=== PATIENT | male | born 1990 | race Caucasian/White ===

== ENCOUNTER 2020-06-18 09:00 | Outpatient (RCR) | payer BC, SELFPAY ==
[2020-05-13 10:53] VITALS: BMI 37.7
[2020-05-13 10:54] VITALS: BMI 37.7
== END 2020-06-18 18:12 | disposition home or self-care (01) ==
LOC: ANHDMC 09:00
PROVIDERS: PCP Family Medicine; Visit Provider Family Medicine
DX: E11.65 Type 2 diabetes mellitus with hyperglycemia (principal); Z71.3 Dietary counseling and surveillance; Z71.89 Other specified counseling
CPT/HCPCS: 97802; G0108

== ENCOUNTER 2020-11-25 09:15 | Outpatient (RCR) | payer OTHER, SELFPAY | END 2021-01-06 08:38 | disposition home or self-care (01) | LOC: ANHDMC 09:15 | PROVIDERS: PCP Family Medicine; Visit Provider Family Medicine | DX: E11.65 Type 2 diabetes mellitus with hyperglycemia (principal); Z71.89 Other specified counseling | CPT/HCPCS: G0108 ==

== ENCOUNTER 2023-12-06 16:12 | Observation (INO) | payer BC, SELFPAY ==
[2023-12-06] VITALS (10 sets, daily range): BP systolic 111–121; BP diastolic 73–77; PULSE 77–104; RESP 15–22; TEMP 37.4–37.7; O2SAT 95–100
--- NOTE | ~2023-12-06 | CT_ITS ---
EXAMINATION: CT brain wo con DATE: 12/06/2023 19:43 INDICATION: headache . TECHNIQUE: Computed tomography (CT) of the head was performed without intravenous contrast. The mA wa s adjusted according to patient size. Iterative reconstruction technique was employed. The dose-lengt h product was 681.00 mGy-cm. COMPARISON: None. FINDINGS: No acute intracranial hemorrhage or extra-axial fluid collection. No hydrocephalus, mass, or herniation. No acute ischemic infarct. Unremarkable dural venous sinus attenuation. No acute osseous abnormality. Mild sphenoid and ethmoid mucosal thickening, the remaining aerated spaces are clear. IMPRESSION: No acute intracranial process. Reviewed, dictated and finalized at location K.
--- NOTE | ~2023-12-06 | XR_ITS ---
EXAMINATION: XR chest 2V Exam Date/Time: 12/06/2023 18:45 CDT HISTORY: sob, FEVER AND WEAKNESS, BODYACHES X 3 DAYS Comparison: 05/19/2016, report only. RESULT: Lines, tubes, and devices: None. Lungs and pleura: Clear. Cardiomediastinal silhouette: Stable. Other: No acute osseous or upper abdominal finding. IMPRESSION: No acute cardiopulmonary process. Reviewed, dictated and finalized at location K.
--- NOTE | 2023-12-06 18:29 | ECG_ITS ---
SEE SCANNED COPY FOR CONFIRMED REPORT MTDD
[2023-12-06] MEDS: IPRATROPIUM 0.5 MG/ALBUTEROL SULFATE 2.5 MG AMPUL.NEB 3 ML INHALATION (18:39)
--- NOTE | 2023-12-06 18:39 | ED.HA ---
HPI - Headache General Chief Complaint: Headache <Odilia Pérez PA-C - Last Filed: 12/07/23 02:05> Stated Complaint: Migraine,n & v <Odilia Pérez PA-C - Last Filed: 12/07/23 02:05> Time Seen by Provider: 12/06/23 17:57 <Odilia Pérez PA-C - Last Filed: 12/07/23 02:05> Source: patient <RANDA Bernard Last Filed: 12/07/23 02:05> Mode of arrival: ambulatory <RANDA Bernard Last Filed: 12/07/23 02:05> Limitations: no limitations <Odilia Pérez PA-C - Last Filed: 12/07/23 02:05> History of Present Illness HPI Narrative: This is a 33-year-old male that presents to the emergency department for a migraine headache. Reports history of migraines. He is also currently ill with flu-like symptoms. Reports since Tuesday he has been having fevers, headache, myalgias, nausea and vomiting. He saw his PCP yesterday for this with negative influenza testing. Presents tonight for treatment of his headache. Reports throbbing in nature with associated photophobia and nausea. Denies focal numbness or weakness. <Odilia Pérez PA-C - Last Filed: 12/07/23 02:05> Related Data Home Medications: Home Medications Medication Instructions Recorded Confirmed bupropion HCl 300 mg 24 hr tablet, 300 mg PO QHS 12/07/23 12/07/23 extended release cholecalciferol (vitamin D3) 1,250 2,000 mcg PO QAM 12/07/23 12/07/23 mcg (50,000 unit) tablet dapagliflozin propaned 5 2 tablet PO HS 12/07/23 12/07/23 mg-metformin ER 1,000 mg tablet, ext rel 24hr (Xigduo XR) omeprazole 20 mg capsule,delayed 20 mg PO HS 12/07/23 12/07/23 release paroxetine HCl 40 mg tablet (Paxil) 40 mg PO QHS 12/07/23 12/07/23 rosuvastatin 40 mg tablet 40 mg PO QHS 12/07/23 12/07/23 <Odilia Pérez PA-C - Last Filed: 12/07/23 02:05> Allergies/Adverse Reactions: Allergies Allergy/AdvReac Type Severity Reaction Status Date / Time No Known Allergies Allergy Mild Verified 12/06/23 16:13 <Odilia Pérez PA-C - Last Filed: 12/07/23 02:05> Review of Systems Review of Systems: CONSTITUTIONAL: Reports fever ENT: Denies rhinorrhea, congestion, sore throat RESPIRATORY: Reports dyspnea. Denies cough GASTROINTESTINAL: Reports nausea, vomiting MUSCULOSKELETAL: Reports myalgia. NEUROLOGIC: Reports headache. Denies numbness, or weakness. <Odilia Pérez PA-C - Last Filed: 12/07/23 02:05> All systems reviewed & are unremarkable except as noted in HPI and below <Odilia Pérez PA-C - Last Filed: 12/07/23 02:05> [facility] Past Medical History Medical History: Medical History Anxiety and depression BMI 32.0-32.9,adult BMI 33.0-33.9,adult BMI 34.0-34.9,adult BMI 35.0-35.9,adult BMI 36.0-36.9,adult BMI 37.0-37.9, adult Current mild episode of major depressive disorder without prior episode Elevated cholesterol Encounter for general adult medical examination without abnormal findings Gastroesophageal reflux disease without esophagitis Grade I hemorrhoids Heartburn Low testosterone Low vitamin D level Migraine, unspecified, not intractable, without status migrainosus Tobacco use Unspecified sleep apnea <Odilia Pérez PA-C - Last Filed: 12/07/23 02:05> Family History Family History: Family History Father No problems noted. Mother No problems noted. Sibling No problems noted. Other Diabetes mellitus <Odilia Pérez PA-C - Last Filed: 12/07/23 02:05> Social History Social History: Social History Smoking packs per day: 0.5 Smoking cigarettes per day: 10.0 Years smoked: 19 Smoking pack-years: 9.50 Smoking status: Current every day smoker Tobacco type: cigarettes Second hand tobacco smoke exposure: No Alcohol intake: never Drinks per week: 1 Substance use:
[2023-12-06 18:45] LABS: Strep Group A RT-PCR NOT DETECTED (Negative)
[2023-12-06 18:59] LABS: Influenza A QL RT-PCR Negative (Negative); Influenza B QL RT-PCR Negative (Negative); RSV RNA, RT-PCR Negative (Negative); SARS-CoV-2 RNA PCR Negative (Negative)
[2023-12-06 19:06] LABS: Basophils Percent Auto 0.3 % (0.2-1.2); Eosinophils Absolute Auto 0.1 K/mm3 (0-0.3); Eosinophils Percent Auto 1.2 % (0-4.4); Hematocrit 48.8 % (42.0-52.0); Hemoglobin 16.2 g/dL (14.0-18.0); Immature Granulocyte Absolute 0.03 K/mm3 (0.00-0.031); Immature Granulocyte Percent A 0.5 % (0-0.5); Lymphocytes Absolute Auto 0.68 K/mm3 (0.9-3.2); Lymphocytes Percent Auto 11.2 % (18.3-44.2); Mean Corpuscular HGB Conc 33.2 g/dl (32-36); Mean Corpuscular Hemoglobin 27.4 pg (26-34); Mean Corpuscular Volume 82.4 fl (80-100); Mean Platelet Volume 9.5 fl (7.4-10.4); Monocytes Absolute Auto 0.6 K/mm3 (0.1-0.6); Monocytes Percent Auto 9.8 % (2.6-8.5); Neutrophils Absolute Auto 4.7 K/mm3 (1.3-6.7); Platelet Count Result 140 k/mm3 (150-375); Red Blood Count 5.92 M/mm3 (4.6-6.20); Red Cell Distribution Width 13.6 % (11.5-14.5); White Blood Count 6.1 K/mm3 (4.5-10.0)
[2023-12-06] MEDS: diphenhydrAMINE HCl INJ 50 MG/ML VIAL 25 MG IV PUSH (19:11)
[2023-12-06] MEDS: SODIUM CHLORIDE 0.9% IV 1,000 ML 999 ML IV CONT (19:11)
[2023-12-06] MEDS: METOCLOPRAMIDE HCL INJ 10 MG/2 ML VIAL IV PUSH (19:11)
[2023-12-06] MEDS: ACETAMINOPHEN 500 MG TABLET 1000 MG PO (19:12)
[2023-12-06] MEDS: KETOROLAC 15 MG/ML VIAL (*BKC) IV PUSH (19:12)
[2023-12-06 19:22] LABS: Alanine Aminotransferase 63 U/L (6-50); Albumin Level 4.7 g/dL (3.5-5.1); Alkaline Phosphatase 81 U/L (38-126); Anion Gap 8 mmol/L (4-12); Aspartate Amino Transferase 49 U/L (17-59); Blood Urea Nitrogen 18 mg/dL (9-20); Calcium 9.9 mg/dL (8.4-10.2); Carbon Dioxide 27 mmol/L (22-30); Chloride 102 mmol/L (98-107); Estimated CRCL calculation 139 ml/min; Estimated Glomerular Filt Rate > 60; Glucose 115 mg/dL (65-110); Potassium 3.7 mmol/L (3.4-5.0); Sodium 137 mmol/L (137-145)
[2023-12-06 21:45] LABS: Erythrocyte Sedimentation Rate 12 mm/hr (0-20)
[2023-12-06 22:01] LABS: CRP 7.9 mg/dL (<1.0)
[2023-12-06] MEDS: cefTRIAXone 2 GM/NS 100 ML 2 GM/100 ML BAG IVPB (22:02)
[2023-12-06 22:09] LABS: Lactic Acid Reflex 0.9 mmol/L (0.7-2.0)
[2023-12-06] MEDS: dexAMETHasone SOD PHOS INJ 10 MG/ML 1 ML VIAL 16.5 MG IV PUSH (22:16)
--- NOTE | 2023-12-06 22:22 | PM.IMHP ---
H&P: HPI History of Present Illness Date/Time: 12/06/23 22:22 Chief Complaint: headache Narrative: This is a 33-year-old male with past medical history significant for anxiety and depression, obesity, gastroesophageal reflux disease, migraine headaches, tobacco use, sleep apnea. Patient presents to the emergency room with 3 days of headache localized to the left side, denies any congestion of the nose chest congestion had a fever of 104, denies sore throat denies diarrhea no sick contacts Had nausea with it no vomiting, no vision changes, took Tylenol and Advil with no relieve. Preliminary workup has been essentially nonrevealing in emergency room. Patient has been placed in observation for further evaluation management and treatment. Patient tested negative for influenza type A influenza type B RSV and COVID EXAMINATION:? XR chest 2V Exam Date/Time:? 12/06/2023 18:45 CDT HISTORY: sob, FEVER AND WEAKNESS, BODYACHES X 3 DAYS ? Comparison:? 05/19/2016, report only. RESULT: Lines, tubes, and devices:? None. Lungs and pleura:? Clear. Cardiomediastinal silhouette:? Stable. Other:? No acute osseous or upper abdominal finding. ? IMPRESSION: No acute cardiopulmonary process. EXAMINATION: CT brain wo con DATE: 12/06/2023 19:43 INDICATION: headache . TECHNIQUE: Computed tomography (CT) of the head was performed without intravenous contrast. The mA was adjusted according to patient size. Iterative reconstruction technique was employed. The dose-length product was 681.00 mGy-cm. COMPARISON: None. FINDINGS: No acute intracranial hemorrhage or extra-axial fluid collection. No hydrocephalus, mass, or herniation. No acute ischemic infarct. Unremarkable dural venous sinus attenuation. No acute osseous abnormality. Mild sphenoid and ethmoid mucosal thickening, the remaining aerated spaces are clear. IMPRESSION:? No acute intracranial process. Review of Systems Review of Systems: headache Constitutional: Constitutional: Reports chills, Denies night sweats and Reports poor appetite Eyes: Eyes: Denies change in vision Comments: ENT: Denies dysphagia, Denies vertigo, Denies dizziness, Reports headache(s), Denies nasal congestion, Denies nasal discharge, Denies nasal obstruction and Denies odynophagia Cardiovascular: Cardiovascular: Denies chest pain, Denies radiating jaw, neck or arm pain and Denies palpitations Respiratory: Respiratory: Denies chest congestion, Denies cough and Denies excessive phlegm production Gastrointestinal: Gastrointestinal: Denies abdominal pain, Denies diarrhea, Denies loose stools, Reports nausea and Denies vomiting Genitourinary: Genitourinary: Denies dysuria Musculoskeletal: Musculoskeletal: Denies myalgias Integumentary/Breasts: Skin/Breast: Denies rash Neurologic: Denies abnormal gait, Denies confusion, Denies vertigo, Denies dizziness, Denies lack of coordination, Denies focal weakness and Denies Sensory deficit (Neuro) Psychiatric: Psychiatric: Reports no additional psychiatric complaints and Reports as per HPI Endocrine: Endocrine: Denies cold intolerance, Denies fatigue, Denies flushing, Denies heat intolerance, Denies polyphagia, Denies polydipsia, Denies polyuria and Denies palpitations Hematologic/Lymphatic: Hematologic/Lymphatic: Reports no additional hematologic/lymphatic complaints and Reports as per HPI Allergic/Immunologic: Allergic/Immunologic: Reports no additional allergic/immunologic complaints and Reports as per HPI [facility] Past Medical History Medical History Anxiety and depression BMI 32.0-32.9,adult BMI 33.0-33.9,adult BMI 34.0-34.9,adult BMI 35.0-35.9,adult BMI 36.0-36.9,adult BMI 37.0-37.9, adult Current mild episode of major depressive disorder without prior episode Elevated cholesterol Encounter for general adult medical examination without abnormal findings [place]
[2023-12-06 22:24] LABS: Appearance Urine Clear (Clear); Bacteria Urine None Seen /hpf; Bilirubin Urine 1+ (Negative); Blood Urine Negative (Negative); Color Urine Dark Yellow (Yellow); Glucose Urine UA 3+ mg/dL (Negative); Ketones Urine 2+ mg/dL (Negative); Leukocyte Esterase Ur Negative LEU/UL (Negative); Need Manual Microscopic Reviewed; Nitrate Urine Negative (Negative); Non Pathogenic Casts 0-2; Protein Urine 1+ mg/dL (Negative); Squamous Epithelial Cell Urine None Seen /hpf (Few); WBC Urine 0-5 /hpf (0-3)
[2023-12-06 22:27] LABS: Add Urine Microscopic? YES; Specific Grav Ur 1.048 (1.001-1.035)
[2023-12-06 22:37] LABS: INR 0.9
[2023-12-07] VITALS: BP 117/71; PULSE 84; RESP 18; TEMP 36.4; O2SAT 96
--- NOTE | 2023-12-07 00:17 | ADMGEN ---
This patient, Rupesh Perez, was admitted to [address] [place] [address] Room 300-01. Patient/family oriented to hospital policies and general routines including ID bracelet, bed and alarms, visiting hours, pain management, procedures, bathroom and other care routines, personal items, smoking policy, room service/diet, and visiting hours. Information on how to activate the Rapid Response Team has been discussed. Patient/Family are encouraged to report perceived risks to care and to ask questions if they do not understand what they are told or what they should do.
[2023-12-07 00:33] VITALS: BMI 34.6
[2023-12-07] MEDS: ACETAMINOPHEN 500 MG TABLET 1000 MG PO (01:05)
[2023-12-07] MEDS: diphenhydrAMINE HCl INJ 50 MG/ML VIAL IV PUSH (01:05)
[2023-12-07] MEDS: VANCOMYCIN 1,250 MG/NS 250 ML 1,250 MG/250 ML BAG 166.67 MG IVPB ×2 (01:07→01:10)
[2023-12-07 05:15] VITALS: PULSE 80; O2SAT 97
[2023-12-07] MEDS: SODIUM CHLOR 3% 15 ML NEB (RESPIRATORY THERAPY) 6 ML INHALATION (05:37)
[2023-12-07 05:50] VITALS: PULSE 83; RESP 18
[2023-12-07 06:00] VITALS: BP 109/62; PULSE 79; RESP 18; TEMP 36.2; O2SAT 97
[2023-12-07 07:06] LABS: Estimated CRCL calculation 139 ml/min; Estimated Glomerular Filt Rate > 60
[2023-12-07 08:22] LABS: Glucose Point of Care 156 mg/dl (65-105)
--- NOTE | 2023-12-07 09:21 | PHAR ---
Home medication identified in pharmacy and returned to 3medsurg unit.Amphetamine -Dextroamphetamine ER 10MG
--- NOTE | 2023-12-07 12:13 | PM.DS ---
DS: Admitting Diagnosis Discharge Date 12/07/23 Admitting Diagnosis Headache DS: Discharge Diagnosis Discharge Diagnosis (1) Headache: Qualifiers: Headache chronicity pattern: acute headache Headache type: unspecified Intractability: intractable Qualified Code(s): R51.9 - Headache, unspecified Code(s): R51.9 - Headache, unspecified Status: Acute (2) Hyperlipidemia associated with type 2 diabetes mellitus: Code(s): E11.69 - Type 2 diabetes mellitus with other specified complication; E78.5 - Hyperlipidemia, unspecified Status: Acute (3) MAHSA (obstructive sleep apnea): Code(s): G47.33 - Obstructive sleep apnea (adult) (pediatric) Status: Acute (4) Tobacco use: Code(s): Z72.0 - Tobacco use Status: Acute (5) Type 2 diabetes mellitus with hyperglycemia, without long-term current use of insulin: Code(s): E11.65 - Type 2 diabetes mellitus with hyperglycemia Status: Acute (6) ADHD (attention deficit hyperactivity disorder): Qualifiers: Attention deficit-hyperactivity disorder type: combined inattentive-hyperactive Qualified Code(s): F90.2 - Attention-deficit hyperactivity disorder, combined type Code(s): F90.9 - Attention-deficit hyperactivity disorder, unspecified type Status: Acute DS: Summary Hospital Course Hospital Course: This is a 33-year-old male patient who was admitted for an intractable headache history of migraines tobacco use and sleep apnea. Patient reports that he had cold flu-like symptoms for several days and had a severe headache that had worsened gradually over a couple of days. At home he had a fever of 104?. In the emergency department he received IV fluids and medication for headache which helped a little bit but did not relieve the headache. He was started on antibiotics and steroids for possible meningitis admitted to the hospital with LP and MRI ordered. Overnight patient stated that he slept well is feeling much better today his headache is resolved he has no neck stiffness no fever no chills his cough has improved and he is not wanting to undergo further testing at this time. Discussed that he tested negative for flu RSV and COVID but other viral illnesses are possible. Discussed the risks and benefits of foregoing lumbar puncture and MRI. The fact that headache has completely resolved and patient never experienced neck stiffness or significant back pain with mobilization of chin to chest the likelihood of bacterial meningitis is essentially 0%. Discussed that he may have had a mild viral meningitis but supportive care would be the recommendation for such and now that he is symptom free patient elected for discharge. Computers were down at the time of discharge so he was provided a down time paper discharge form. He was also instructed to call his primary care office for follow-up appointment in 1-2 weeks while he was waiting for his discharge papers. I discussed reasons to return including high fever stiff neck return of pain vomiting or any worsening in symptoms. Patient expressed understanding. He was also counseled significantly greater than 10 minutes on smoking cessation, as well as blood sugar control, importance of hydration. Time spent discussing smoking cessation with patient: more than 10 minutes Status at Discharge Cognitive/behavioral status at discharge: Awake alert oriented and very pleasant Functional status at discharge: independent ambulation Overall status at discharge: patient is back to baseline Time Spent with Patient Time attestation: Total time spent providing and/or coordinating discharge services: 40 minutes in addition to more than 10 minutes of smoking cessation Time spent: Greater than 30 minutes Exam Narrative: GENERAL: Well-appearing, well-nourished, and in no acute distress. HEAD: Normocephalic, atraumatic. ENT:? Mucous membranes moist. No lymphadenopathy, no nuchal rigi
== END 2023-12-07 11:45 | disposition home or self-care (01) ==
LOC: ANHED 19:23 → ANH3MEDSUR 23:11
PROVIDERS: Admitting Provider Internal Medicine; Emergency Provider Physician Assistant; PCP Family Medicine; Visit Provider Internal Medicine
DX: R51.9 Headache, unspecified (principal); F41.9 Anxiety disorder, unspecified; F32.9 Major depressive disorder, single episode, unspecified; E78.00 Pure hypercholesterolemia, unspecified; K21.9 Gastro-esophageal reflux disease without esophagitis; E66.9 Obesity, unspecified; Z68.34 Body mass index [BMI] 34.0-34.9, adult; F90.2 Attention-deficit hyperactivity disorder, combined type; E11.65 Type 2 diabetes mellitus with hyperglycemia; G47.33 Obstructive sleep apnea (adult) (pediatric); Z20.822 Contact with and (suspected) exposure to COVID-19; F17.210 Nicotine dependence, cigarettes, uncomplicated; Z79.85 Long-term (current) use of injectable non-insulin antidiabetic drugs; Z79.84 Long term (current) use of oral hypoglycemic drugs; Z79.899 Other long term (current) drug therapy
CPT/HCPCS: 36415; 70450; 71046; 80053; 81001; 82565; 82948; 83605; 85025; 85610; 85652; 86140; 87040; 87070; 87205; 87637; 87651; 93005; 94640; 96361; 96365; 96366; 96367; 96375; 96376; 99285; A9270; G0378; J0133; J0696; J1100; J1200; J1885; J2765; J3370; J7030; J7060